=== PATIENT | female | born 1960 | race Caucasian/White ===

== ENCOUNTER 2016-11-05 11:54 | Inpatient (IN) | payer BC ==
[~2016-11-05] VITALS: Ht 147.3 cm; Wt 47.9 kg
[~2016-11-05 11:54] MED LIST: CITRATE OF MAG296 ML PO; CO Q-10 100 MG1 EACH PO; COLACE100 MG PO; CRESTOR20 MG PO; GLIMEPIRIDE4 MG PO; LEVAQUIN250 MG PO; LORAZEPAM1 MG PO; MAALOX/LIDOCAINE PO; METFORMIN HCL1000 MG PO; MIRALAX255 GM PO; ONDANSETRON HCL8 MG GT; OXYCODONE H5 MG/5 ML PO; OXYCONTIN10 MG PO; PREDNISONE20 MG PO
[2016-11-05 12:09] LABS: EOSINOPHIL (%) 2.7 % (0-5); EOSINOPHIL COUNT 0.2 K/uL (0-0.3); HEMATOCRIT 46.2 % (36.0-46.0); IMMATURE GRANULOCYTE (%) 0.4 % (0.0-0.7); INSTRUMENT ABS NEUTROPHIL CT 5.9 K/uL; LYMPHOCYTE COUNT 1.6 K/uL (1.0-2.8); MCH 27.7 PG (29.0-34.0); MCHC 31.8 G/DL (30.0-36.0); MEAN PLAT.VOLUME 9.9 uM^3 (9.5-12.4); MONOCYTE (%) 6.4 % (3-12); MONOCYTE COUNT 0.5 K/uL (0-0.8); NEUTROPHIL (%) 70.9 % (45-76); NEUTROPHIL COUNT 5.9 K/uL (1.8-6.4); PLATELET COUNT 317 K/uL (156-360); RBC DIS.WIDTH-CV 14.8 % (11.8-14.6); RBC DIS.WIDTH-SD 47.6 % (39-53); RED BLOOD COUNT 5.31 M/uL (3.80-5.20); WHITE BLOOD COUNT 8.2 K/uL (4.1-10.2)
[2016-11-05 12:12] LABS: POINT-OF-CARE METER ID UU14100415
[2016-11-05 12:55] LABS: PROTHROMBIN TIME 10.8 SEC (10.2-12.9)
[2016-11-05 12:57] LABS: PTT 35.8 SEC (25-37)
[2016-11-05 12:58] LABS: AMYLASE 20 IU/L (1-118); CHLORIDE 105 mEq/L (99-109); SODIUM 141 mEq/L (136-147)
[2016-11-05 13:00] LABS: GLUCOSE 132 mg/dL (70-99)
[2016-11-05 13:01] LABS: ANION GAP 12 MEQ/L (2-14)
[2016-11-05 13:03] LABS: SERUM ETHYL ALCOHOL < 10 mg/dL
[2016-11-05 13:04] LABS: GFR ESTIMATE (CALCULATED) 49 mL/min/
[2016-11-05 13:05] LABS: UREA NITROGEN (BUN) 31 mg/dL (9-23)
[2016-11-05 13:07] LABS: LIPASE 10 U/L (1.0-51.0)
[2016-11-05 13:08] LABS: TROP-I INTERPRETATION NEGATIVE; TROPONIN-I 0.02 ng/mL (0.0-0.30)
[2016-11-05] MEDS ORDERED: SYNTHROID150 MCG GT (13:46)
[2016-11-05] MEDS ORDERED: LEXAPRO10 MG GT (13:46)
[2016-11-05] MEDS ORDERED: METFORMIN HCL500 M1 PO (13:46)
[2016-11-05] MEDS ORDERED: AMITRIPTYLINE H10 MG GT (13:46)
[2016-11-05] MEDS ORDERED: CALCIUM 600 +1 EAC3 GT (13:46)
[2016-11-05] MEDS ORDERED: TOPIRAMATE25 MG GT (13:47)
[2016-11-05] MEDS ORDERED: IRON325 M1 GT (13:47)
[2016-11-05 16:36] LABS: ADD MIUA? YES; BILIRUBIN NEGATIVE; BLOOD NEGATIVE; COLOR AMBER ((YELLOW)); GLUCOSE (STRIP) NEGATIVE; KETONES NEGATIVE; LEUKOCYTES NEGATIVE; NITRITE NEGATIVE; PROTEIN (STRIP) >=500; SPECIFIC GRAVITY 1.016 (1.000-1.030); UROBILINOGEN 0.2 MG/DL (0.2-1.0)
[2016-11-05 16:45] LABS: BACTERIA NONE SEEN /HPF; EPITHELIAL CELLS RARE /HPF; HYALINE CASTS 0-5 /LPF; MUCUS NONE SEEN /LPF; RED BLOOD CELLS 0-5 /HPF (0-5); UCUL ADDED? NO; WHITE BLOOD CELLS 0-5 /HPF (0-5)
[2016-11-05 16:56] LABS: AMPHETAMINE NEGATIVE (500 ng/mL); BARBITURATES NEGATIVE (200 ng/mL); BENZODIAZEPINES NEGATIVE (150 ng/mL); COCAINE NEGATIVE (150 ng/mL); INTERNAL CONTROLS VALID? YES; METHADONE NEGATIVE (200 ng/mL); METHAMPHETAMINE NEGATIVE (500 ng/mL); OPIATES (MORPHINE) NEGATIVE (100 ng/mL); OXYCODONE NEGATIVE (100 ng/mL); PHENCYCLIDINE NEGATIVE (25 ng/mL); PROPOXYPHENE NEGATIVE (300 ng/mL); THC CANNABINOIDS NEGATIVE (50 ng/mL); TRICYCLIC ANTIDEPRESSANTS PRESUMPTIVE POSITIVE (300 ng/mL)
[2016-11-05 18:16] VITALS: BP 132/74
[2016-11-05 18:53] LABS: TROP-I INTERPRETATION NEGATIVE; TROPONIN-I 0.03 ng/mL (0.0-0.30)
[2016-11-05 19:33] VITALS: BP 138/79
[2016-11-05 23:40] VITALS: BP 149/73
[2016-11-06] VITALS (9 sets, daily range): BP systolic 94–192; BP diastolic 57–91
[2016-11-06 01:38] LABS: TROP-I INTERPRETATION NEGATIVE; TROPONIN-I 0.01 ng/mL (0.0-0.30)
[2016-11-06 02:05] LABS: HDL CHOLESTEROL 54 MG/DL (Desirable>=50); LDL CHOLESTEROL 78 mg/dL (Desirable<100); NON-HDL CHOLESTEROL 136 mg/dL (Desirable<160); TOTAL CHOLESTEROL 190 mg/dL (Desirable<200); TRIGLYCERIDES 289 MG/DL (Normal: <150)
[2016-11-06 08:04] LABS: POINT-OF-CARE USER ID STWAMT
[2016-11-06 12:01] LABS: POINT-OF-CARE METER ID UU13113717
[2016-11-06 15:54] LABS: POINT-OF-CARE METER ID UU13113717
[2016-11-06 18:53] LABS: POINT-OF-CARE METER ID UU14188625
[2016-11-06 19:08] LABS: HEMATOCRIT 44.1 % (36.0-46.0); MCV 87.5 FL (83-99); PLATELET COUNT 296 K/uL (156-360); RBC DIS.WIDTH-CV 14.6 % (11.8-14.6); RBC DIS.WIDTH-SD 46.8 % (39-53); RED BLOOD COUNT 5.04 M/uL (3.80-5.20); WHITE BLOOD COUNT 10.4 K/uL (4.1-10.2)
[2016-11-06 19:10] LABS: CHLORIDE 107 mEq/L (99-109); POTASSIUM 4.8 mEq/L (3.7-5.4)
[2016-11-06 19:11] LABS: SODIUM 142 mEq/L (136-147)
[2016-11-06 19:12] LABS: GLUCOSE 105 mg/dL (70-99)
[2016-11-06 19:14] LABS: ANION GAP 13 MEQ/L (2-14)
[2016-11-06 19:16] LABS: GFR ESTIMATE (CALCULATED) 49 mL/min/
[2016-11-06 19:17] LABS: UREA NITROGEN (BUN) 33 mg/dL (9-23)
[2016-11-06 19:36] LABS: TROP-I INTERPRETATION NEGATIVE; TROPONIN-I 0.02 ng/mL (0.0-0.30)
[2016-11-06 19:41] LABS: Estimated Average Glucose 126 mg/dL (70-123)
[2016-11-07 03:26] VITALS: BP 93/54
[2016-11-07 07:29] VITALS: BP 116/65
[2016-11-07 07:46] LABS: POINT-OF-CARE METER ID UU13113717
[2016-11-07 11:09] VITALS: BP 100/58
[2016-11-07 15:17] VITALS: BP 103/54
[2016-11-07 16:41] LABS: POINT-OF-CARE METER ID UU13113717
[2016-11-07 20:19] VITALS: BP 16/65
[2016-11-07 21:26] LABS: POINT-OF-CARE METER ID UU14174225
[2016-11-07 23:37] VITALS: BP 111/70
[2016-11-08 03:22] VITALS: BP 136/70
[2016-11-08 07:51] VITALS: BP 109/57
[2016-11-08 11:41] VITALS: BP 106/56
[2016-11-08 12:21] LABS: POINT-OF-CARE METER ID UU13113717
[2016-11-08 16:07] VITALS: BP 102/67
[2016-11-08 19:43] VITALS: BP 156/68
[2016-11-08 23:41] VITALS: BP 160/74
[2016-11-09 03:45] VITALS: BP 164/78
[2016-11-09 06:10] LABS: BASOPHIL COUNT 0.1 K/uL (0-0.1); EOSINOPHIL (%) 2.3 % (0-5); EOSINOPHIL COUNT 0.3 K/uL (0-0.3); IMMATURE GRANULOCYTE (%) 0.2 % (0.0-0.7); LYMPHOCYTE COUNT 1.6 K/uL (1.0-2.8); MCH 27.7 PG (29.0-34.0); MCHC 31.5 G/DL (30.0-36.0); MCV 87.9 FL (83-99); MEAN PLAT.VOLUME 9.1 uM^3 (9.5-12.4); MONOCYTE (%) 6.6 % (3-12); MONOCYTE COUNT 0.7 K/uL (0-0.8); NEUTROPHIL (%) 75.1 % (45-76); PLATELET COUNT 227 K/uL (156-360); RED BLOOD COUNT 4.55 M/uL (3.80-5.20); WHITE BLOOD COUNT 10.7 K/uL (4.1-10.2)
[2016-11-09 06:50] LABS: ANION GAP 9 MEQ/L (2-14); CHLORIDE 105 MEQ/L (99-109); GFR ESTIMATE (CALCULATED) > 59 mL/min/; GLUCOSE 76 mg/dL (70-99); POTASSIUM 4.4 MEQ/L (3.7-5.4); SAMPLE HEMOLYSIS CHECK 0; SAMPLE ICTERIC CHECK 0; SAMPLE LIPEMIA CHECK 0; SODIUM 140 MEQ/L (136-147); UREA NITROGEN (BUN) 25 mg/dL (9-23)
[2016-11-09 08:35] LABS: POINT-OF-CARE METER ID UU13113717
[2016-11-09 08:40] VITALS: BP 114/60
[2016-11-09 11:00] VITALS: BP 109/58
[2016-11-09 12:21] LABS: POINT-OF-CARE METER ID UU13113717
[2016-11-09 16:38] VITALS: BP 101/54
[2016-11-09 17:23] LABS: POINT-OF-CARE METER ID UU13113717
[2016-11-09 19:50] VITALS: BP 155/80
[2016-11-09 23:36] VITALS: BP 116/73
[2016-11-10 03:59] VITALS: BP 125/77
[2016-11-10 08:00] VITALS: BP 143/81
[2016-11-10 08:57] LABS: POINT-OF-CARE METER ID UU13113717
[2016-11-10 11:07] VITALS: BP 140/79
[2016-11-10 12:16] LABS: POINT-OF-CARE METER ID UU13113717
[2016-11-10 15:12] LABS: POINT-OF-CARE METER ID UU13113717
[2016-11-10 17:11] VITALS: BP 139/82
[2016-11-10 19:43] VITALS: BP 140/79
[2016-11-10 22:22] LABS: MCH 28.6 PG (29.0-34.0); MCHC 32.2 G/DL (30.0-36.0); MCV 88.9 FL (83-99); MEAN PLAT.VOLUME 9.3 uM^3 (9.5-12.4); PLATELET COUNT 228 K/uL (156-360); RBC DIS.WIDTH-CV 14.1 % (11.8-14.6); RBC DIS.WIDTH-SD 45.5 % (39-53); RED BLOOD COUNT 4.61 M/uL (3.80-5.20)
[2016-11-10 22:34] LABS: ANION GAP 13 MEQ/L (2-14); CHLORIDE 106 MEQ/L (99-109); POTASSIUM 4.6 MEQ/L (3.7-5.4); SAMPLE HEMOLYSIS CHECK 0; SAMPLE ICTERIC CHECK 0; SAMPLE LIPEMIA CHECK 0; SODIUM 141 MEQ/L (136-147)
[2016-11-10 22:41] LABS: GFR ESTIMATE (CALCULATED) 54 mL/min/; UREA NITROGEN (BUN) 33 mg/dL (9-23)
[2016-11-10 22:42] LABS: GLUCOSE 103 mg/dL (70-99)
[2016-11-10 23:24] VITALS: BP 143/71
[2016-11-11] VITALS (7 sets, daily range): BP systolic 78–144; BP diastolic 54–84
[2016-11-11 06:03] LABS: C DIFF TOXIN NEGATIVE (NEGATIVE)
[2016-11-11 06:04] LABS: PROBE CHECK PASS; SPECIMEN PROCESSING CONTROL PASS
[2016-11-11 06:36] LABS: EOSINOPHIL (%) 2.2 % (0-5); EOSINOPHIL COUNT 0.2 K/uL (0-0.3); HEMATOCRIT 42.1 % (36.0-46.0); IMMATURE GRANULOCYTE (%) 0.4 % (0.0-0.7); INSTRUMENT ABS NEUTROPHIL CT 7.5 K/uL; LYMPHOCYTE COUNT 1.1 K/uL (1.0-2.8); MCH 27.6 PG (29.0-34.0); MCHC 31.1 G/DL (30.0-36.0); MCV 88.8 FL (83-99); MEAN PLAT.VOLUME 9.1 uM^3 (9.5-12.4); MONOCYTE (%) 7.6 % (3-12); MONOCYTE COUNT 0.7 K/uL (0-0.8); NEUTROPHIL (%) 78.1 % (45-76); NEUTROPHIL COUNT 7.5 K/uL (1.8-6.4); PLATELET COUNT 237 K/uL (156-360); RBC DIS.WIDTH-CV 13.8 % (11.8-14.6); RBC DIS.WIDTH-SD 45.1 % (39-53); RED BLOOD COUNT 4.74 M/uL (3.80-5.20); WHITE BLOOD COUNT 9.6 K/uL (4.1-10.2)
[2016-11-11 07:11] LABS: ANION GAP 12 MEQ/L (2-14); CHLORIDE 107 MEQ/L (99-109); GFR ESTIMATE (CALCULATED) 45 mL/min/; GLUCOSE 90 mg/dL (70-99); POTASSIUM 4.3 MEQ/L (3.7-5.4); SAMPLE HEMOLYSIS CHECK 0; SAMPLE ICTERIC CHECK 0; SAMPLE LIPEMIA CHECK 0; SODIUM 143 MEQ/L (136-147); UREA NITROGEN (BUN) 37 mg/dL (9-23)
[2016-11-11 12:49] LABS: POINT-OF-CARE METER ID UU14174225
[2016-11-12 03:41] VITALS: BP 102/72
[2016-11-12 06:39] LABS: EOSINOPHIL (%) 3.2 % (0-5); EOSINOPHIL COUNT 0.3 K/uL (0-0.3); HEMATOCRIT 40.7 % (36.0-46.0); IMMATURE GRANULOCYTE (%) 0.2 % (0.0-0.7); INSTRUMENT ABS NEUTROPHIL CT 7.3 K/uL; LYMPHOCYTE COUNT 1.4 K/uL (1.0-2.8); MCH 28.8 PG (29.0-34.0); MCHC 31.2 G/DL (30.0-36.0); MCV 92.3 FL (83-99); MEAN PLAT.VOLUME 9.5 uM^3 (9.5-12.4); MONOCYTE (%) 8.1 % (3-12); MONOCYTE COUNT 0.8 K/uL (0-0.8); NEUTROPHIL (%) 74.3 % (45-76); NEUTROPHIL COUNT 7.3 K/uL (1.8-6.4); PLATELET COUNT 217 K/uL (156-360); RBC DIS.WIDTH-CV 14.3 % (11.8-14.6); RBC DIS.WIDTH-SD 48.3 % (39-53); RED BLOOD COUNT 4.41 M/uL (3.80-5.20); WHITE BLOOD COUNT 9.8 K/uL (4.1-10.2)
[2016-11-12 06:45] LABS: INTER. NORMALIZED RATIO 1.1; PROTHROMBIN TIME 11.6 SEC (10.2-12.9)
[2016-11-12 07:02] LABS: CHLORIDE 113 MEQ/L (99-109); GFR ESTIMATE (CALCULATED) 41 mL/min/; GLUCOSE 80 mg/dL (70-99); POTASSIUM 4.3 MEQ/L (3.7-5.4); SODIUM 147 MEQ/L (136-147); UREA NITROGEN (BUN) 40 mg/dL (9-23)
[2016-11-12 07:03] LABS: ANION GAP 12 MEQ/L (2-14); SAMPLE HEMOLYSIS CHECK 0; SAMPLE ICTERIC CHECK 0; SAMPLE LIPEMIA CHECK 0
[2016-11-12 11:22] VITALS: BP 94/57
[2016-11-12 11:41] VITALS: BP 106/64
[2016-11-12 12:08] LABS: POINT-OF-CARE METER ID UU14174225
[2016-11-12 14:28] LABS: POINT-OF-CARE METER ID UU14107333
[2016-11-12 17:55] VITALS: BP 102/64
[2016-11-12 20:06] VITALS: BP 85/58
[2016-11-13] VITALS (7 sets, daily range): BP systolic 82–131; BP diastolic 51–72
[2016-11-13 06:52] LABS: EOSINOPHIL (%) 0.2 % (0-5); HEMATOCRIT 39.3 % (36.0-46.0); IMMATURE GRANULOCYTE (%) 0.5 % (0.0-0.7); IMMATURE GRANULOCYTE COUNT 0.1 K/uL; INSTRUMENT ABS NEUTROPHIL CT 10.2 K/uL; LYMPHOCYTE COUNT 0.7 K/uL (1.0-2.8); MCV 93.3 FL (83-99); MEAN PLAT.VOLUME 9.7 uM^3 (9.5-12.4); MONOCYTE (%) 9.6 % (3-12); MONOCYTE COUNT 1.2 K/uL (0-0.8); NEUTROPHIL (%) 83.9 % (45-76); NEUTROPHIL COUNT 10.2 K/uL (1.8-6.4); PLATELET COUNT 203 K/uL (156-360); RBC DIS.WIDTH-CV 14.6 % (11.8-14.6); RBC DIS.WIDTH-SD 49.9 % (39-53); RED BLOOD COUNT 4.21 M/uL (3.80-5.20); WHITE BLOOD COUNT 12.2 K/uL (4.1-10.2)
[2016-11-13 07:18] LABS: ANION GAP 14 MEQ/L (2-14); CHLORIDE 116 MEQ/L (99-109); GFR ESTIMATE (CALCULATED) 31 mL/min/; MAGNESIUM 1.9 mg/dl (1.3-2.7); SAMPLE HEMOLYSIS CHECK 0; SAMPLE ICTERIC CHECK 0; SAMPLE LIPEMIA CHECK 0; SODIUM 149 MEQ/L (136-147); UREA NITROGEN (BUN) 43 mg/dL (9-23)
[2016-11-13 07:19] LABS: GLUCOSE 132 mg/dL (70-99)
[2016-11-13 11:28] LABS: POINT-OF-CARE METER ID UU14188625
[2016-11-14] VITALS (12 sets, daily range): BP systolic 102–188; BP diastolic 56–119
[2016-11-14 06:35] LABS: EOSINOPHIL (%) 2.1 % (0-5); EOSINOPHIL COUNT 0.2 K/uL (0-0.3); HEMATOCRIT 38.6 % (36.0-46.0); IMMATURE GRANULOCYTE (%) 0.9 % (0.0-0.7); IMMATURE GRANULOCYTE COUNT 0.1 K/uL; INSTRUMENT ABS NEUTROPHIL CT 7.1 K/uL; LYMPHOCYTE COUNT 1.2 K/uL (1.0-2.8); MCH 28.6 PG (29.0-34.0); MCHC 31.1 G/DL (30.0-36.0); MCV 92.1 FL (83-99); MONOCYTE (%) 8.7 % (3-12); MONOCYTE COUNT 0.8 K/uL (0-0.8); NEUTROPHIL (%) 74.9 % (45-76); NEUTROPHIL COUNT 7.1 K/uL (1.8-6.4); PLATELET COUNT 187 K/uL (156-360); RBC DIS.WIDTH-CV 14.7 % (11.8-14.6); RBC DIS.WIDTH-SD 49.8 % (39-53); RED BLOOD COUNT 4.19 M/uL (3.80-5.20); WHITE BLOOD COUNT 9.4 K/uL (4.1-10.2)
[2016-11-14 06:56] LABS: ANION GAP 9 MEQ/L (2-14); CHLORIDE 112 MEQ/L (99-109); GFR ESTIMATE (CALCULATED) 38 mL/min/; GLUCOSE 141 mg/dL (70-99); POTASSIUM 4.7 MEQ/L (3.7-5.4); SAMPLE HEMOLYSIS CHECK 0; SAMPLE ICTERIC CHECK 0; SAMPLE LIPEMIA CHECK 0; SODIUM 144 MEQ/L (136-147); UREA NITROGEN (BUN) 47 mg/dL (9-23)
[2016-11-14 08:49] LABS: BASE EXCESS -6.9 mEq/L (-3 to +3); BICARBONATE 22.6 mEq/L (22-26); CARBOXY HGB 0.8 % (0-5); METHEMOGLOBIN 1.2 % (0-1.5); PCO2 65 mm Hg (35-45); PO2 64 mm Hg (80-100)
[2016-11-14 08:50] LABS: COMMENTS - BLOOD GASES C+; DEVICE NC; O2 FLOW 4 L/MIN; SITE LR; TOTAL RESP RATE 24 resp/min; pH 7.15 (7.35-7.45)
[2016-11-14 13:22] LABS: POINT-OF-CARE METER ID UU14162636
[2016-11-14 16:39] LABS: METH RESISTANT S AUREUS PCR POSITIVE (NEGATIVE)
[2016-11-14 17:03] LABS: PROBE CHECK PASS
[2016-11-14 18:32] LABS: POINT-OF-CARE METER ID UU13113731
[2016-11-15] VITALS (15 sets, daily range): BP systolic 99–173; BP diastolic 68–102
[2016-11-15 01:54] LABS: POINT-OF-CARE METER ID UU14162636
[2016-11-15 05:42] LABS: EOSINOPHIL (%) 0 % (0-5); HEMATOCRIT 36.4 % (36.0-46.0); IMMATURE GRANULOCYTE (%) 1.1 % (0.0-0.7); IMMATURE GRANULOCYTE COUNT 0.1 K/uL; INSTRUMENT ABS NEUTROPHIL CT 9.2 K/uL; LYMPHOCYTE COUNT 0.4 K/uL (1.0-2.8); MCH 29.1 PG (29.0-34.0); MCHC 31.9 G/DL (30.0-36.0); MCV 91.5 FL (83-99); MEAN PLAT.VOLUME 10.3 uM^3 (9.5-12.4); MONOCYTE (%) 1.7 % (3-12); MONOCYTE COUNT 0.2 K/uL (0-0.8); NEUTROPHIL (%) 93.5 % (45-76); NEUTROPHIL COUNT 9.2 K/uL (1.8-6.4); PLATELET COUNT 189 K/uL (156-360); RBC DIS.WIDTH-CV 14.6 % (11.8-14.6); RBC DIS.WIDTH-SD 49.7 % (39-53); RED BLOOD COUNT 3.98 M/uL (3.80-5.20); WHITE BLOOD COUNT 9.8 K/uL (4.1-10.2)
[2016-11-15 06:09] LABS: ANION GAP 12 MEQ/L (2-14); CHLORIDE 110 MEQ/L (99-109); GFR ESTIMATE (CALCULATED) 45 mL/min/; GLUCOSE 140 mg/dL (70-99); POTASSIUM 5.2 MEQ/L (3.7-5.4); SAMPLE HEMOLYSIS CHECK 0; SAMPLE ICTERIC CHECK 0; SAMPLE LIPEMIA CHECK 0; SODIUM 142 MEQ/L (136-147); UREA NITROGEN (BUN) 52 mg/dL (9-23)
[2016-11-15 10:51] LABS: POINT-OF-CARE METER ID UU14162636
[2016-11-15 17:37] LABS: POINT-OF-CARE METER ID UU13113731
[2016-11-16] VITALS (7 sets, daily range): BP systolic 96–150; BP diastolic 54–80
[2016-11-16 00:51] LABS: POINT-OF-CARE METER ID UU13113717
[2016-11-16 06:46] LABS: POINT-OF-CARE METER ID UU13113717
[2016-11-16 07:04] LABS: EOSINOPHIL (%) 0 % (0-5); HEMATOCRIT 31.8 % (36.0-46.0); IMMATURE GRANULOCYTE (%) 0.5 % (0.0-0.7); IMMATURE GRANULOCYTE COUNT 0.1 K/uL; INSTRUMENT ABS NEUTROPHIL CT 9.6 K/uL; LYMPHOCYTE COUNT 0.5 K/uL (1.0-2.8); MCH 28.1 PG (29.0-34.0); MCHC 31.4 G/DL (30.0-36.0); MCV 89.3 FL (83-99); MEAN PLAT.VOLUME 9.9 uM^3 (9.5-12.4); MONOCYTE COUNT 0.5 K/uL (0-0.8); NEUTROPHIL (%) 89.5 % (45-76); NEUTROPHIL COUNT 9.6 K/uL (1.8-6.4); PLATELET COUNT 198 K/uL (156-360); RBC DIS.WIDTH-CV 14.4 % (11.8-14.6); RBC DIS.WIDTH-SD 47.2 % (39-53); RED BLOOD COUNT 3.56 M/uL (3.80-5.20); WHITE BLOOD COUNT 10.8 K/uL (4.1-10.2)
[2016-11-16 07:32] LABS: ANION GAP 7 MEQ/L (2-14); CHLORIDE 111 MEQ/L (99-109); GFR ESTIMATE (CALCULATED) > 59 mL/min/; GLUCOSE 161 mg/dL (70-99); POTASSIUM 4.6 MEQ/L (3.7-5.4); SAMPLE HEMOLYSIS CHECK 0; SAMPLE ICTERIC CHECK 0; SAMPLE LIPEMIA CHECK 0; SODIUM 144 MEQ/L (136-147); UREA NITROGEN (BUN) 47 mg/dL (9-23)
[2016-11-16 17:35] LABS: POINT-OF-CARE METER ID UU14174225
[2016-11-17 04:02] VITALS: BP 130/57
[2016-11-17 07:37] VITALS: BP 139/83
[2016-11-17 08:56] LABS: EOSINOPHIL (%) 2.5 % (0-5); EOSINOPHIL COUNT 0.3 K/uL (0-0.3); HEMATOCRIT 35.8 % (36.0-46.0); IMMATURE GRANULOCYTE (%) 0.4 % (0.0-0.7); INSTRUMENT ABS NEUTROPHIL CT 8.2 K/uL; LYMPHOCYTE COUNT 0.6 K/uL (1.0-2.8); MCHC 31.3 G/DL (30.0-36.0); MCV 89.5 FL (83-99); MEAN PLAT.VOLUME 9.3 uM^3 (9.5-12.4); MONOCYTE (%) 8.1 % (3-12); MONOCYTE COUNT 0.8 K/uL (0-0.8); NEUTROPHIL (%) 83.2 % (45-76); NEUTROPHIL COUNT 8.2 K/uL (1.8-6.4); PLATELET COUNT 214 K/uL (156-360); RBC DIS.WIDTH-CV 14.2 % (11.8-14.6); RBC DIS.WIDTH-SD 46.2 % (39-53); WHITE BLOOD COUNT 9.9 K/uL (4.1-10.2)
[2016-11-17 09:43] LABS: ANION GAP 5 MEQ/L (2-14); CHLORIDE 104 MEQ/L (99-109); GFR ESTIMATE (CALCULATED) > 59 mL/min/; GLUCOSE 154 mg/dL (70-99); POTASSIUM 3.7 MEQ/L (3.7-5.4); SAMPLE HEMOLYSIS CHECK 0; SAMPLE ICTERIC CHECK 0; SAMPLE LIPEMIA CHECK 0; SODIUM 143 MEQ/L (136-147); UREA NITROGEN (BUN) 36 mg/dL (9-23)
[2016-11-17 11:16] VITALS: BP 135/78
[2016-11-17 11:24] LABS: POINT-OF-CARE METER ID UU14174225
[2016-11-17 15:17] VITALS: BP 145/77
[2016-11-17 17:54] LABS: POINT-OF-CARE METER ID UU14174225
[2016-11-17 20:00] VITALS: BP 165/72
[2016-11-17 23:29] LABS: POINT-OF-CARE METER ID UU14174225
[2016-11-17 23:54] VITALS: BP 156/82
[2016-11-18 04:15] VITALS: BP 150/62
[2016-11-18 07:38] VITALS: BP 148/69
[2016-11-18 09:55] LABS: HEMATOCRIT 35.9 % (36.0-46.0); MCH 28.1 PG (29.0-34.0); MCHC 31.8 G/DL (30.0-36.0); MCV 88.4 FL (83-99); MEAN PLAT.VOLUME 9.1 uM^3 (9.5-12.4); PLATELET COUNT 205 K/uL (156-360); RBC DIS.WIDTH-CV 13.9 % (11.8-14.6); RBC DIS.WIDTH-SD 45.1 % (39-53); RED BLOOD COUNT 4.06 M/uL (3.80-5.20); WHITE BLOOD COUNT 11.2 K/uL (4.1-10.2)
[2016-11-18 10:17] LABS: ANION GAP 2 MEQ/L (2-14); CHLORIDE 99 MEQ/L (99-109); GFR ESTIMATE (CALCULATED) > 59 mL/min/; GLUCOSE 172 mg/dL (70-99); POTASSIUM 3.9 MEQ/L (3.7-5.4); SAMPLE HEMOLYSIS CHECK 0; SAMPLE ICTERIC CHECK 0; SAMPLE LIPEMIA CHECK 0; SODIUM 140 MEQ/L (136-147); UREA NITROGEN (BUN) 26 mg/dL (9-23)
[2016-11-18 11:06] VITALS: BP 154/75
[2016-11-18 12:05] LABS: POINT-OF-CARE METER ID UU13113717
[2016-11-18 15:07] VITALS: BP 157/84
[2016-11-18 17:54] LABS: POINT-OF-CARE METER ID UU13113717
[2016-11-18 23:40] VITALS: BP 154/78
[2016-11-19 00:18] LABS: POINT-OF-CARE METER ID UU14174225
[2016-11-19 05:18] LABS: POINT-OF-CARE METER ID UU13113717
[2016-11-19 08:10] VITALS: BP 118/76
[2016-11-19 12:19] LABS: POINT-OF-CARE METER ID UU13113717
[2016-11-19 15:01] VITALS: BP 102/60
[2016-11-19 17:52] LABS: POINT-OF-CARE METER ID UU13113717
[2016-11-19 23:48] LABS: POINT-OF-CARE METER ID UU13113717
[2016-11-20 00:13] VITALS: BP 128/78
[2016-11-20 04:51] LABS: POINT-OF-CARE METER ID UU13113717
[2016-11-20 07:45] VITALS: BP 175/87
[2016-11-20 07:48] VITALS: BP 110/70
[2016-11-20] MEDS ORDERED: LEVETIRACE100 MG/1 M GT (14:37)
[2016-11-20] MEDS ORDERED: SPIRIVA RESPIMAT4 G1 IH (14:37)
[2016-11-20] MEDS ORDERED: ATORVASTATIN CA40 MG GT (14:37)
[2016-11-20] MEDS ORDERED: AERONEB GO NEB1 EACH MC (14:37)
[2016-11-20] MEDS ORDERED: NOVOLOG PE100 UNITS/ SC (14:37)
[2016-11-20] MEDS ORDERED: DUONEB 2.5-0.5 M3 ML AEROSOL (14:37)
[2016-11-20] MEDS ORDERED: ENDOCET 5-3251 EACH PO (14:37)
[2016-11-20] MEDS ORDERED: ASPIRIN81 M2 GT (14:37)
[2016-11-20] MEDS ORDERED: CEPHALEXIN500 MG GT (14:37)
[2016-11-20 16:02] VITALS: BP 120/78
[2016-11-20 17:46] LABS: POINT-OF-CARE METER ID UU13113717
[2016-11-21 01:00] VITALS: BP 120/57
[2016-11-21 01:04] LABS: POINT-OF-CARE METER ID UU13113717
[2016-11-21 07:44] VITALS: BP 115/67
[2016-11-21 12:25] LABS: POINT-OF-CARE METER ID UU14174225
== END 2016-11-21 15:31 | disposition home or self-care (01) | DRG 64 ==
LOC: EME 11:54 → EDOF 13:16 → ENRESERV 13:18 → EDOF 13:28 → ENRESERV 16:04 → EDOF 16:12 → 5SOUTH 16:12 → ENRESERV 16:33 → 5SOUTH 18:02 → ENRESERV 11-14 09:24 → 4WEST 11-14 09:51 → ENRESERV 11-15 16:00 → 4WEST 11-15 16:00 → ENRESERV 11-15 16:37 → 5SOUTH 11-15 17:32
PROVIDERS: Emergency Medicine; Hospitalist; Internal Medicine; Internal Medicine Nephrology; Nurse Practitioner Adult Health; Physician Assistant Medical
PROC: 0DH63UZ Insertion of Feeding Device into Stomach, Percutaneous Approach (ICD-10-PCS; principal; 2016-11-12)
DX: I63.9 Cerebral infarction, unspecified (principal); J69.0 Pneumonitis due to inhalation of food and vomit; J96.21 Acute and chronic respiratory failure with hypoxia; Q21.1 Atrial septal defect; J44.1 Chronic obstructive pulmonary disease with (acute) exacerbation; I42.1 Obstructive hypertrophic cardiomyopathy; E11.22 Type 2 diabetes mellitus with diabetic chronic kidney disease; G43.909 Migraine, unspecified, not intractable, without status migrainosus; I65.21 Occlusion and stenosis of right carotid artery; R47.81 Slurred speech; N18.3 Chronic kidney disease, stage 3 (moderate); E78.5 Hyperlipidemia, unspecified; E86.0 Dehydration; I73.9 Peripheral vascular disease, unspecified; I08.1 Rheumatic disorders of both mitral and tricuspid valves; R13.12 Dysphagia, oropharyngeal phase; R25.9 Unspecified abnormal involuntary movements; F43.22 Adjustment disorder with anxiety; M79.601 Pain in right arm; R56.9 Unspecified convulsions; F39 Unspecified mood [affective] disorder; E03.9 Hypothyroidism, unspecified; I25.2 Old myocardial infarction; I27.2 Other secondary pulmonary hypertension; Z92.21 Personal history of antineoplastic chemotherapy; Z85.819 Personal history of malignant neoplasm of unspecified site of lip, oral cavity, and pharynx; Z79.899 Other long term (current) drug therapy; Z91.19 Patient's noncompliance with other medical treatment and regimen; Z87.01 Personal history of pneumonia (recurrent); Z82.3 Family history of stroke; Z51.5 Encounter for palliative care; Z29.3 Encounter for prophylactic fluoride administration; Z66 Do not resuscitate
CPT/HCPCS: 31720; 36600; 70450; 70549; 70551; 71010; 71020; 74230; 80048; 80061; 81003; 82150; 82803; 82948; 83036; 83605; 83690; 83735; 84146; 84484; 85025; 85027; 85610; 85730; 86900; 86901; 87493; 87641; 92507 GN; 92526 GN; 92610 GN; 92611 GN; 93005; 93306; 93880; 94002; 94799; 95819; 99202; 99281; 99284; G0480; J0360; J1170; J1644; J1650; J1815; J1953; J2060; J2405; J2920; J2930; J7030; J7050; J7512

== ENCOUNTER 2016-11-24 00:47 | Inpatient (IN) | payer BC ==
[~2016-11-24] VITALS: Ht 149.9 cm; Wt 50.2 kg
[~2016-11-24 00:47] MED LIST changes: +AERONEB GO NEB1 EACH MC; +AMITRIPTYLINE H10 MG GT; +ASPIRIN81 M2 GT; +ATORVASTATIN CA40 MG GT; +CALCIUM 600 +1 EAC3 GT; +CEPHALEXIN500 MG GT; +DUONEB 2.5-0.5 M3 ML AEROSOL; +ENDOCET 5-3251 EACH PO; +IRON325 M1 GT; +LEVETIRACE100 MG/1 M GT; +LEXAPRO10 MG GT; +METFORMIN HCL500 M1 PO; +NOVOLOG PE100 UNITS/ SC; +SPIRIVA RESPIMAT4 G1 IH; +SYNTHROID150 MCG GT; +TOPIRAMATE25 MG GT
[2016-11-24 02:08] LABS: PROTHROMBIN TIME 11.2 SEC (10.2-12.9)
[2016-11-24 02:10] LABS: HEMATOCRIT 37.3 % (36.0-46.0); MCH 27.8 PG (29.0-34.0); MCHC 31.6 G/DL (30.0-36.0); MEAN PLAT.VOLUME 8.8 uM^3 (9.5-12.4); RBC DIS.WIDTH-SD 44.8 % (39-53); RED BLOOD COUNT 4.24 M/uL (3.80-5.20); WHITE BLOOD COUNT 11.1 K/uL (4.1-10.2)
[2016-11-24 02:12] LABS: CHLORIDE 99 mEq/L (99-109); POTASSIUM 3.8 mEq/L (3.7-5.4); SODIUM 138 mEq/L (136-147)
[2016-11-24 02:13] LABS: PLATELET COUNT 285 K/uL (156-360)
[2016-11-24 02:14] LABS: GLUCOSE 54 mg/dL (70-99)
[2016-11-24 02:15] LABS: ANION GAP 8 MEQ/L (2-14)
[2016-11-24 02:16] LABS: TOTAL BILIRUBIN 0.3 mg/dL (0.0-1.0)
[2016-11-24 02:17] LABS: ALKALINE PHOSPHATASE 73 IU/L (3-129)
[2016-11-24 02:18] LABS: GFR ESTIMATE (CALCULATED) > 59 mL/min/
[2016-11-24 02:19] LABS: UREA NITROGEN (BUN) 31 mg/dL (9-23)
[2016-11-24 02:21] LABS: CREATINE KINASE 28 IU/L (1-294); LIPASE 6 U/L (1.0-51.0); TOTAL CK 28 IU/L (1-294)
[2016-11-24 02:23] LABS: TROP-I INTERPRETATION NEGATIVE; TROPONIN-I 0.07 ng/mL (0.0-0.30)
[2016-11-24 03:34] LABS: POINT-OF-CARE METER ID UU13113747
[2016-11-24 06:06] LABS: POINT-OF-CARE METER ID UU13113747
[2016-11-24 07:45] VITALS: BP 116/59
[2016-11-24 08:00] VITALS: BP 93/54
[2016-11-24 10:24] LABS: POINT-OF-CARE METER ID UU14162513
[2016-11-24 12:31] VITALS: BP 128/67
[2016-11-24 16:00] VITALS: BP 107/61
[2016-11-24 17:56] LABS: POINT-OF-CARE METER ID UU14162513
[2016-11-24 19:24] VITALS: BP 106/56
[2016-11-24 23:58] VITALS: BP 110/60
[2016-11-25 00:13] LABS: POINT-OF-CARE METER ID UU14162513
[2016-11-25 04:35] VITALS: BP 146/74
[2016-11-25 05:45] LABS: HEMATOCRIT 33.9 % (36.0-46.0); MCH 28.2 PG (29.0-34.0); MCHC 32.2 G/DL (30.0-36.0); MCV 87.6 FL (83-99); MEAN PLAT.VOLUME 8.8 uM^3 (9.5-12.4); PLATELET COUNT 277 K/uL (156-360); RBC DIS.WIDTH-CV 14.4 % (11.8-14.6); RBC DIS.WIDTH-SD 45.2 % (39-53); RED BLOOD COUNT 3.87 M/uL (3.80-5.20); WHITE BLOOD COUNT 11.5 K/uL (4.1-10.2)
[2016-11-25 06:05] LABS: POINT-OF-CARE METER ID UU14162513
[2016-11-25 06:18] LABS: ANION GAP 5 MEQ/L (2-14); CHLORIDE 103 MEQ/L (99-109); GFR ESTIMATE (CALCULATED) > 59 mL/min/; POTASSIUM 4.1 MEQ/L (3.7-5.4); SAMPLE HEMOLYSIS CHECK 0; SAMPLE ICTERIC CHECK 0; SAMPLE LIPEMIA CHECK 0; SODIUM 137 MEQ/L (136-147); UREA NITROGEN (BUN) 23 mg/dL (9-23)
[2016-11-25 06:20] LABS: GLUCOSE 179 mg/dL (70-99)
[2016-11-25 08:12] VITALS: BP 133/72
[2016-11-25 12:02] VITALS: BP 128/71
[2016-11-25 12:48] LABS: POINT-OF-CARE METER ID UU13113700
[2016-11-25 16:06] VITALS: BP 119/63
[2016-11-25 17:34] LABS: POINT-OF-CARE METER ID UU14162513
[2016-11-25 21:03] LABS: POINT-OF-CARE METER ID UU14162513
[2016-11-25 21:55] VITALS: BP 120/68
[2016-11-25 23:33] VITALS: BP 111/62
[2016-11-26 00:21] LABS: POINT-OF-CARE METER ID UU13113700
[2016-11-26 04:45] VITALS: BP 118/62
[2016-11-26 04:53] LABS: POINT-OF-CARE METER ID UU13113700
[2016-11-26 08:50] VITALS: BP 92/54
[2016-11-26 09:05] VITALS: BP 109/62
[2016-11-26 10:10] LABS: HEMATOCRIT 32.8 % (36.0-46.0); MCH 28.1 PG (29.0-34.0); MCHC 31.7 G/DL (30.0-36.0); MCV 88.6 FL (83-99); PLATELET COUNT 266 K/uL (156-360); RBC DIS.WIDTH-CV 14.3 % (11.8-14.6); RBC DIS.WIDTH-SD 46.5 % (39-53); WHITE BLOOD COUNT 9.6 K/uL (4.1-10.2)
[2016-11-26 10:32] LABS: ANION GAP 5 MEQ/L (2-14); CHLORIDE 104 MEQ/L (99-109); GFR ESTIMATE (CALCULATED) > 59 mL/min/; GLUCOSE 149 mg/dL (70-99); POTASSIUM 4.5 MEQ/L (3.7-5.4); SAMPLE HEMOLYSIS CHECK 0; SAMPLE ICTERIC CHECK 0; SAMPLE LIPEMIA CHECK 0; SODIUM 140 MEQ/L (136-147); UREA NITROGEN (BUN) 20 mg/dL (9-23)
[2016-11-26 12:29] LABS: POINT-OF-CARE METER ID UU13113831
[2016-11-26 14:04] LABS: TROP-I INTERPRETATION NEGATIVE; TROPONIN-I 0.04 ng/mL (0.0-0.30)
[2016-11-26] MEDS ORDERED: FORTAMET500 M1 GT (16:16)
[2016-11-26] MEDS ORDERED: ENDOCET 5-3251 EACH GT (17:00)
[2016-11-26] MEDS ORDERED: CEPHALEXIN500 M1 GT (17:01)
[2016-11-26 17:10] VITALS: BP 130/63
[2016-11-26 19:00] VITALS: BP 100/56
[2016-11-26 23:25] VITALS: BP 137/72
[2016-11-27 03:00] VITALS: BP 130/68
[2016-11-27 06:27] LABS: POINT-OF-CARE METER ID UU13113831
[2016-11-27 07:30] VITALS: BP 122/65
[2016-11-27 11:16] LABS: METH RESISTANT S AUREUS PCR POSITIVE (NEGATIVE); PROBE CHECK PASS
[2016-11-27 12:31] VITALS: BP 140/67
[2016-11-27] MEDS ORDERED: MIDODRINE HCL5 MG PO (13:33)
[2016-11-27] MEDS ORDERED: LEVETIRACE100 MG/1 M GT (13:34)
[2016-11-27] MEDS ORDERED: POLYETHYLENE GL17 GM GT (13:34)
[2016-11-27 15:54] LABS: POINT-OF-CARE METER ID UU13113700
[2016-11-27 17:39] LABS: POINT-OF-CARE METER ID UU13113831
== END 2016-11-27 18:40 | disposition home health service (06) | DRG 101 ==
LOC: EME 00:47 → EDOF 04:54 → 5WEST 04:54 → EDOF 04:54 → ENRESERV 04:57 → 5WEST 07:39 → CANRESERV 11-26 11:39 → ENRESERV 11-26 11:39 → 5WEST 11-27 18:40
PROVIDERS: Emergency Medicine; Hospitalist; Internal Medicine; Physician Assistant
DX: G40.909 Epilepsy, unspecified, not intractable, without status epilepticus (principal); I42.1 Obstructive hypertrophic cardiomyopathy; J96.10 Chronic respiratory failure, unspecified whether with hypoxia or hypercapnia; D64.9 Anemia, unspecified; E03.9 Hypothyroidism, unspecified; E11.40 Type 2 diabetes mellitus with diabetic neuropathy, unspecified; E11.649 Type 2 diabetes mellitus with hypoglycemia without coma; E78.5 Hyperlipidemia, unspecified; E86.0 Dehydration; Z66 Do not resuscitate; Z51.5 Encounter for palliative care; F17.210 Nicotine dependence, cigarettes, uncomplicated; F43.22 Adjustment disorder with anxiety; F39 Unspecified mood [affective] disorder; I95.1 Orthostatic hypotension; J44.9 Chronic obstructive pulmonary disease, unspecified; K59.00 Constipation, unspecified; B95.62 Methicillin resistant Staphylococcus aureus infection as the cause of diseases classified elsewhere; I34.0 Nonrheumatic mitral (valve) insufficiency; I36.1 Nonrheumatic tricuspid (valve) insufficiency; I27.2 Other secondary pulmonary hypertension; R39.2 Extrarenal uremia; R54 Age-related physical debility; I51.7 Cardiomegaly; R13.10 Dysphagia, unspecified; Z79.4 Long term (current) use of insulin; Z86.14 Personal history of Methicillin resistant Staphylococcus aureus infection; I69.391 Dysphagia following cerebral infarction; Z99.81 Dependence on supplemental oxygen; Z79.82 Long term (current) use of aspirin; Z79.84 Long term (current) use of oral hypoglycemic drugs; Z80.3 Family history of malignant neoplasm of breast; Z85.819 Personal history of malignant neoplasm of unspecified site of lip, oral cavity, and pharynx; Z92.21 Personal history of antineoplastic chemotherapy; Z92.3 Personal history of irradiation; Z93.1 Gastrostomy status
CPT/HCPCS: 70450; 71010; 80048; 80053; 80177 90; 82550; 82553; 82948; 83690; 84484; 85027; 85610; 85730; 87641; 93005; 94640; 94640 76; 94799; 95819; 99202; G0378; G8978 GP CJ; G8979 GP CI; G8987 GO CJ; G8988 CI; J1644; J1815; J7030; J7042; S0028

== ENCOUNTER 2016-12-19 09:43 | Emergency (ER) | payer BC ==
[~2016-12-19] VITALS: Ht 149.9 cm; Wt 43.2 kg
[~2016-12-19 09:43] MED LIST changes: +CEPHALEXIN500 M1 GT; +ENDOCET 5-3251 EACH GT; +FORTAMET500 M1 GT; +MIDODRINE HCL5 MG PO; +POLYETHYLENE GL17 GM GT
[2016-12-19 10:38] LABS: EOSINOPHIL (%) 3.5 % (0-5); EOSINOPHIL COUNT 0.3 K/uL (0-0.3); HEMATOCRIT 37.5 % (36.0-46.0); IMMATURE GRANULOCYTE (%) 0.2 % (0.0-0.7); INSTRUMENT ABS NEUTROPHIL CT 7.1 K/uL; LYMPHOCYTE COUNT 1.6 K/uL (1.0-2.8); MCH 28.1 PG (29.0-34.0); MCHC 32.3 G/DL (30.0-36.0); MEAN PLAT.VOLUME 8.9 uM^3 (9.5-12.4); MONOCYTE (%) 7.1 % (3-12); MONOCYTE COUNT 0.7 K/uL (0-0.8); NEUTROPHIL (%) 72.6 % (45-76); NEUTROPHIL COUNT 7.1 K/uL (1.8-6.4); PLATELET COUNT 292 K/uL (156-360); RBC DIS.WIDTH-CV 14.1 % (11.8-14.6); RBC DIS.WIDTH-SD 45.9 % (39-53); RED BLOOD COUNT 4.31 M/uL (3.80-5.20); WHITE BLOOD COUNT 9.8 K/uL (4.1-10.2)
[2016-12-19 10:47] LABS: CHLORIDE 102 mEq/L (99-109); POTASSIUM 4.6 mEq/L (3.7-5.4); SODIUM 138 mEq/L (136-147)
[2016-12-19 10:49] LABS: GLUCOSE 110 mg/dL (70-99)
[2016-12-19 10:50] LABS: ANION GAP 7 MEQ/L (2-14)
[2016-12-19 10:53] LABS: GFR ESTIMATE (CALCULATED) 54 mL/min/; UREA NITROGEN (BUN) 27 mg/dL (9-23)
[2016-12-19 11:23] LABS: SAMPLE HEMOLYSIS CHECK 0; SAMPLE ICTERIC CHECK 0; SAMPLE LIPEMIA CHECK 0
[2016-12-19 13:46] VITALS: BP 139/70
== END 2016-12-19 14:13 | disposition home or self-care (01) ==
LOC: EME 09:43
PROVIDERS: Emergency Medicine
DX: G40.909 Epilepsy, unspecified, not intractable, without status epilepticus (principal); M25.552 Pain in left hip; Z91.81 History of falling; E11.40 Type 2 diabetes mellitus with diabetic neuropathy, unspecified; J44.9 Chronic obstructive pulmonary disease, unspecified; E03.9 Hypothyroidism, unspecified; F41.9 Anxiety disorder, unspecified; Z86.73 Personal history of transient ischemic attack (TIA), and cerebral infarction without residual deficits; Z85.819 Personal history of malignant neoplasm of unspecified site of lip, oral cavity, and pharynx; Z87.891 Personal history of nicotine dependence; Z79.84 Long term (current) use of oral hypoglycemic drugs
CPT/HCPCS: 73502; 80048; 80164; 85025; 99281; 99285